=== PATIENT | female | born 1950 | race Caucasian/White ===

== ENCOUNTER 2016-09-04 14:54 | Inpatient (IN) | payer BC ==
[2016-09-04] MEDS ORDERED: ONDANSETRON HCL/PF 2 MG/ML VIAL ONE ×2 (15:03→16:11)
[2016-09-04] MEDS ORDERED: ONDANSETRON HCL/PF 2 MG/ML VIAL IV ONE ×2 (15:06→16:13)
[2016-09-04] MEDS ORDERED: NORMAL SALINE 1,000 ML IV ONE ×2 (15:18→17:24)
--- NOTE | 2016-09-04 15:24 | ERNOTE ---
Abdominal HPI - Narrative Date of Service: 09/04/16 - General Chief Complaint: Nausea/Vomiting Time Seen by Provider: 09/04/16 15:19 - Immun/Allergies/Home Medications Immunizatons: IMMUNIZATION HX History of Influenza Vaccine No Hx Pneumococcal Vaccination No Allergies/Adverse Reactions: Allergies amoxicillin trihydrate [From Augmentin] Allergy (Severe, Verified 04/10/13 15:12 ) Swelling of Tongue potassium clavulanate [From Augmentin] Allergy (Severe, Verified 04/10/13 15:12) Swelling of Tongue Penicillins Allergy (Unknown, Verified 09/04/16 14:59) Home Medications: HOME MEDICATIONS Aspirin/Calcium Carbonate/Mag [Aspirin Buffered 325 mg Tab] 325 mg PO 09/04/16 [ Last Taken 09/04/16 13:00] - History of Present Illness Narrative: Patient relates that she became acutely ill at 10am today. SHe started coughing and vomiting. She has prolonged dry heaves. She states she also was coughing. Fever here. She feels generalized malaise. No CP or SOB. No abdominal pain. She states some loose stool, no watery diarrhea noted. No blood in stool or vomit. Fever here. Has had some recent dysuria. Has not seen anyone else for this. Timing: constant Quality: moderate Activities at Onset: none Modifying Factors - (Improves): Present: other - none Modifying Factors - (Worsens): Present: other - none Associated Symptoms: Present: nausea, vomiting. Absent: headache, chest pain, diarrhea-gross blood, shortness of breath Prior Abdominal Problems: Present: none Prior Treatment: Absent: recently seen Review of Systems - Review of Systems Constitutional: Present: fever ENT: Absent: nose congestion Respiratory: Present: cough Cardiology: Absent: chest pain Gastrointestinal/Abdominal: Present: nausea, vomiting Genitourinary: Present: dysuria All Other Systems: All systems neg except as marked - Patient's Past Medical History Patient History - Medical: No pertinent hx - Social History Living Situations: home Smoking Status: Former smoker - Immunizations Hx Pneumococcal Vaccination: No History of Influenza Vaccine: No Physical Exam - Physical Exam General Appearance: Present: alert, other - lying on her side, noes not appear to be well Eye Exam: Normal inspection: bilateral, PERRL: bilateral Ears, Nose, Throat: Present: normal ENT inspection, dry mucous membranes Neck: Present: normal inspection Respiratory: Present: no respiratory distress, normal breath sounds, no accessory muscle use, lungs clear Cardiovascular/Chest: Present: tachycardia Gastrointestinal/Abdominal: Present: normal bowel sounds, nontender, nondistended, soft, no organomegaly Back Exam: Absent: CVA tenderness (R), CVA tenderness (L) Extremity Exam: Present: normal inspection Neurological Exam: Present: alert, normal mood/affect, no motor/sensory deficits , admissions director II-XII nml as tested Skin Exam: Absent: skin rash ED Progress - Results and Orders Patient's Lab Results:: I have reviewed the patient's lab results. - Vital Signs Patient's Vital Signs:: I have reviewed the patient's vital signs. Vital Signs: Vital Signs 09/04/16 14:54 Temperature 38.8 C H Pulse Rate 95 Respiratory 12 Rate Blood Pressure 144/110 O2 Sat by Pulse 98 Oximetry - X-Ray X-Ray #1 X-Ray: chest Interpretation: Interp. by me X-ray Comments: Radiology report reviewed - Progress/Reassessment Chief Complaint: Abdominal Pain Progress Note-Subjective: 09/04/16 19:24 Patient given IV ABx. She has on-going tachycardia and feels generally poorly despite 2 L NS. At this point I feel observation most appropriate. Pt agrees to this. D/W Hospitalist who will admit the patient obs. Departure - Departure Clinical Impression: Pneumonia, Fever, Vomiting, Dehydration Disposition: [facility] Condition: Stable
[2016-09-04 15:56] LABS: Hemoglobin 13.6 gm/dL (12.5-16.0); Mean Cell Volume 89.1 fl (78-100); Mean Corpuscular Hemoglobin 29.6 pg (27-31); Mean Corpuscular Hgb Conc 33.2 g/dl (32-36); Mean Platelet Volume 10.5 fl (6.0-9.5); Neutrophil # 11.3 K/mm3 (1.3-6.0); Neutrophil % 88.6 % (42-75.0); Platelet Count 198 K/mm3 (150-450); Red Cell Distribution Width 13.4 % (11.5-14.0); White Blood Count 12.8 K/mm3 (4.0-10.5)
[2016-09-04 16:09] LABS: Albumin * 3.8 gm/dl (3.4-5.0); Anion Gap 10.4 mmol/L (6.8-13.8); BUN/Creatinine Ratio 21.3 (9.0-21.6); Bilirubin, Total 0.6 mg/dL (0.0-1.1); Ca. Corrected For Albumin 8.5 mg/dL (8.4-10.2); Calcium * 8.7 mg/dL (7.9-10.9); Potassium 3.4 mmol/L (3.4-4.6); Total Protein 7.1 gm/dL (6.2-8.2)
[2016-09-04 17:37] LABS: Urine Bilirubin Negative (NEGATIVE); Urine Ketone Negative (NEGATIVE); Urine Nitrite Negative (NEGATIVE); Urine Protein Negative (NEGATIVE); Urine Urobilinogen Normal (NORMAL)
[2016-09-04] MEDS ORDERED: LEVOFLOXACIN/D5W 500 MG/100 ML BAG IV SCH (17:45)
[2016-09-04 17:52] LABS: Urine Appearance Clear; Urine Bacteria TRACE; Urine Blood 10 /ul (NEGATIVE); Urine Color Yellow; Urine RBC 0-5 /hpf (0-5); Urine WBC 0-5 /hpf (0-5)
[2016-09-04] MEDS ORDERED: LEVOFLOXACIN/D5W 750 MG/150 ML BAG IV SCH (19:00)
[2016-09-04] MEDS: NORMAL SALINE 1,000 ML IV PRN (20:20)
--- NOTE | 2016-09-04 20:28 | HP ---
<Yaneth Tate - Last Filed: 09/05/16 04:17> Chief Complaint - Chief Complaint Date of Service: 09/04/16 Time of Service: 20:26 Chief Complaint: "Nausea, dry heaving, headaches, chills, nasal congestion". Source of HPI- Pt; reliable, ER provider report. History of Present Illness: Mrs. Ivey is a 66-yr-old [facility] pt who has no pertinent PMH. She does not have a particular PCP. Pt presented to the ED with complaints of feeling unwell since 10.00 am today. She reports that she suddenly felt nauseated and begun dry heaving. Her symptoms progressed to coughing, vomiting, headaches and chills. The dry heaving got worse, and so she chose to come to the [facility] ER. She states that she has been around ill persons. She visited her mother who [facility] and was recently found to have Pneumonia. Pt's spouse has been having URI symptoms as well. She denies diarrhea, Abdominal pain, C.P & SOB. Also denies blood in vomitus. During evaluation at the ED, she was found to be febrile with a temp of 38.8 & WBC of 12,800 with a left shift. Lactic Acid was in NR. The CXR showed RT side opacities consistent with Pneumonia. ERP was going to treat and discharge pt from ED, but she persistently remained Tachycardic with HR in the upper 120s, despite treatment with IVF boluses. She will therefore be admitted under observation for IVF hydration and remote telemetry monitoring. - Patient's Past Medical History Patient History - Medical: No pertinent hx, Depression Patient History - Cardiac/Respiratory: Pneumonia Patient History - Cancer: No Hx of Cancer Patient History - Surgical Procedures: T & A Patient History - Other: None - Family History Mother Family History - Medical: Dementia Family History - Cardiac/Respiratory: No pertinent hx Family History - Cancer: No pertinent family hx Father Family History - Medical: Family History - Cardiac/Respiratory: No pertinent hx Family History - Cancer: Pancreatic - Social History Living Situations: home Smoking Status: Former smoker Have you smoked in the past 12 months: No Do you dip or chew tobacco: No Patient requests Smoking Cessation Consult: No Initiate information on Smoking Cessation: No Alcohol Use: none Drug Use: none - Immunizations Hx Pneumococcal Vaccination: No History of Influenza Vaccine: No Review Of Systems (GEN) - Review of Systems Generalized/Overall Review: Present: Weakness, Chills, Fever, Malaise EENTM: Present: Nose Congestion. Absent: Tearing, Double Vision Respiratory: Present: Cough. Absent: Shortness of Breath, Wheezing Cardiac: Absent: Chest Pain, Edema, Palpitations Abdominal: Present: Nausea, Vomiting. Absent: Hematemesis, Abdominal Pain, Diarrhea Genitourinary: Absent: Burning, Itching, Urgency, Frequency Musculoskeletal: Absent: Joint Pain, Back Pain, Joint Swelling, Muscle Pain, Neck Pain Neurological: Present: Headache, Depressed, Tremors. Absent: Anxiety Skin: Absent: Dryness, Lesions, Lumps, Bruising Endocrine: Present: Intolerance to Cold. Absent: Intolerance to Heat, Increased Hunger, Flushing, Increased Thirst Misc: All systems neg except as marked Immunizations: IMMUNIZATION HX History of Influenza Vaccine No Hx Pneumococcal Vaccination No Allergies/Adverse Reactions: Allergies Allergy/AdvReac Type Severity Reaction Status Date / Time amoxicillin trihydrate Allergy Severe Swelling Verified 04/10/13 15:12 [From Augmentin] of Tongue potassium clavulanate Allergy Severe Swelling Verified 04/10/13 15:12 [From Augmentin] of Tongue Penicillins Allergy Unknown Verified 09/04/16 14:59 Home Medications: HOME MEDICATIONS Aspirin/Calcium Carbonate/Mag [Aspirin Buffered 325 mg Tab] 325 mg PO DAILY [Last Taken 09/04/16 17:00] Exam - Exam Vital Signs: Vital Signs - Last Taken Temp 37.8 C H 09/04/16 20:01 Pulse 108 H 09/04/16 20:01 Resp 24 H 09/04/16 20:01 BP 140/70 09/04/16 20:01 Pulse Ox 96 09/04/16 20:01 Constitutional: Present: Alert, Oriented x3, Cooperative, Moderate distress ENT Exam: Present: normal ENT inspection, hearing grossly normal, nasal congestion Eye Exam: bilateral eye: normal inspection, PERRL Neck: Present: full range of motion, supple, normal inspection, trachea midline Back Exam: Present: no CVA tenderness Breasts: Present: Exam deferred Respiratory: Present: no accessory muscle use, rales - On the RT lung, No wheezing Cardiovascular/Chest: Present: no chest tenderness, no murmur, tachycardia Abdomen: Present: Normal bowel sounds, soft, nontender, nondistended /Rectal: Present: Exam deferred Extremity: Present: non-tender, normal inspection, no pedal edema Skin Exam: Present: warm/dry, no cyanosis Lymphatic: Present: no adenopathy Neurologic: Present: no motor/sensory deficits, alert, oriented x 3. Absent: dizzy/light-headedness Appearance: Present: appropriate appearance, appropriate insight Eye contact: Present: cooperative, good eye contact, normal speech Thoughts: Present: normal thought pattern, no apparent hallucination Diagnostic Studies: Laboratory Results WBC 12.8 K/mm3 (4.0-10.5) H 09/04/16 15:30 RBC 4.60 M/mm3 (4.2-5.4) 09/04/16 15:30 Hgb 13.6 gm/dL (12.5-16.0) 09/04/16 15:30 Hct 41.0 % (37.0-47.0) 09/04/16 15:30 MCV 89.1 fl (78-100) 09/04/16 15:30 MCH 29.6 pg (27-31) 09/04/16 15:30 MCHC 33.2 g/dl (32-36) 09/04/16 15:30 RDW 13.4 % (11.5-14.0) 09/04/16 15:30 Plt Count 198 K/mm3 (150-450) 09/04/16 15:30 MPV 10.5 fl (6.0-9.5) H 09/04/16 15:30 Immature Gran % (Auto) 0.40 % (0.001-0.429) 09/04/16 15:30 Immature Gran # (Auto) 0.05 K/mm3 (0.000-0.0310) H 09/04/16 15:30 Neutrophils % 88.6 % (42-75.0) H 09/04/16 15:30 Lymphocytes % 3.4 % (20-51) L 09/04/16 15:30 Monocytes % 7.0 % (0.0-9) 09/04/16 15:30 Eosinophils % 0.1 % (0.0-3.0) 09/04/16 15:30 Basophils % 0.5 % (0.0-1.0) 09/04/16 15:30 Nucleated RBC % 0.0 k/mm3 (0-1) 09/04/16 15:30 Neutrophils # 11.3 K/mm3 (1.3-6.0) H 09/04/16 15:30 Lymphocytes # 0.4 k/mm3 (1.5-3.5) L 09/04/16 15:30 Monocytes # 0.9 k/mm3 (0.0-1.0) 09/04/16 15:30 Eosinophils # 0.0 k/mm3 (0.0-0.7) 09/04/16 15:30 Absolute Basophils 0.1 k/mm3 (0.0-0.1) 09/04/16 15:30 Sodium 138 mmol/L (132-142) 09/04/16 15:30 Plasma Sodium 138 mmol/L (130-142) 09/04/16 15:30 Potassium 3.4 mmol/L (3.4-4.6) 09/04/16 15:30 Chloride 103 mmol/L (97-106) 09/04/16 15:30 Carbon Dioxide 28.0 mmol/L (24-32.6) 09/04/16 15:30 Anion Gap 10.4 mmol/L (6.8-13.8) 09/04/16 15:30 BUN 16 mg/dL (3-23) 09/04/16 15:30 Creatinine 0.75 mg/dL (0.4-1.4) 09/04/16 15:30 Est GFR (Non-Af Amer) 83 mL/min (60-130) 09/04/16 15:30 BUN/Creatinine Ratio 21.3 (9.0-21.6) 09/04/16 15:30 Random Glucose 126 mg/dL (70-110) H 09/04/16 15:30 Lactic Acid, Venous 1.3 mmol/L (0.4-2.0) 09/04/16 15:30 Calcium 8.7 mg/dL (7.9-10.9) 09/04/16 15:30 Calcium Adj for Albumin 8.5 mg/dL (8.4-10.2) 09/04/16 15:30 Total Bilirubin 0.6 mg/dL (0.0-1.1) 09/04/16 15:30 AST 18 U/L (0-48) 09/04/16 15:30 ALT 20 U/L (19-67) 09/04/16 15:30 Alkaline Phosphatase 81 U/L (50-170) 09/04/16 15:30 Total Protein 7.1 gm/dL (6.2-8.2) 09/04/16 15:30 Albumin 3.8 gm/dl (3.4-5.0) 09/04/16 15:30 Lipase 81 U/L (73-393) 09/04/16 15:30 Urine Color Yellow 09/04/16 17:29 Urine Appearance Clear 09/04/16 17:29 Urine pH 6.0 pH (5.0-7.0) 09/04/16 17:29 Ur Specific [place] 1.020 SP.GR. (1.005-1.010) 09/04/16 17: Urine Protein Negative mg/dL (NEGATIVE) 09/04/16 17:29 Urine Glucose (UA) Negative mg/dL (NEGATIVE) 09/04/16 17: Urine Ketones Negative mg/dL (NEGATIVE) 09/04/16 17:29 Urine Blood 10 /ul (NEGATIVE) H 09/04/16 17:29 Urine Nitrate Negative (NEGATIVE) 09/04/16 17:29 Urine Bilirubin Negative mg/dl (NEGATIVE) 09/04/16 17:29 Urine Urobilinogen Normal EU/dl (NORMAL) 09/04/16 17:29 Ur Leukocyte Esterase 25 /ul (NEGATIVE) H 09/04/16 17:29 Urine RBC 0-5 /hpf (0-5) 09/04/16 17:29 Urine WBC 0-5 /hpf (0-5) 09/04/16 17:29 Ur Epithelial Cells 0-5 /hpf (0-5) 09/04/16 17:29 Urine Bacteria Trace (NONE) 09/04/16 17:29 Urine Culture Comments Culture to follow 09/04/16 17:29 Influenza Type A Ag Negative (NEGATIVE) 09/04/16 15:06 Influenza Type B Ag Negative (NEGATIVE) 09/04/16 15:06 Assessment/Plan - Assessment/Plan (1) Pneumonia Assessment: Noted to have clinical features associated with CAP-Fevers, chills, Cough, Leukocytosis on CBC, Crackles on RT base and CXR indicating opacities in the RT Lung. She was negative for influenza. Blood and sputum cultures are pending. Urinary antigen testing for Strep Pneumo and legionella are pending. She received treatment with IV levaquin in ER. However, since she is otherwise a healthy pt, ( no comoribidities such as DM, Lung, renal disease), first line outpatient treatment with a Macrolide e.g Azthryromycin 500mg x 1 then 250mg daily x 4 days, or Clarythromycin 500 mg PO bid x 7 days, would be considered sufficient. Continue supportive cares with IVF hydration, APAP for fevers & headaches, & Antiemetics. Monitor CBC in am Problem: Acute QualifierTitle: Laterality: right Lung location: middle lobe of lung <Sam Goldberg - Last Filed: 09/05/16 10:58> Immunizations: IMMUNIZATION HX History of Influenza Vaccine No Hx Pneumococcal Vaccination No Exam - Exam Vital Signs: Vital Signs - Last Taken Temp 36.6 C 09/05/16 10:14 Pulse 82 09/05/16 10:14 Resp 20 09/05/16 10:14 BP 120/64 09/05/16 10:14 Pulse Ox 94 09/05/16 10:14 Diagnostic Studies: Abnormal Lab Results 09/05/16 Range/Units 04:40 WBC 13.2 H (4.0-10.5) K/mm3 RBC 3.94 L (4.2-5.4) M/mm3 Hgb 11.5 L (12.5-16.0) gm/dL Hct 35.2 L (37.0-47.0) % MPV 10.8 H (6.0-9.5) fl Immature Gran % (Auto) 0.60 H (0.001-0.429) % Immature Gran # (Auto) 0.08 H (0.000-0.0310) K/mm3 Neutrophils % 82.4 H (42-75.0) % Lymphocytes % 6.1 L (20-51) % Monocytes % 10.7 H (0.0-9) % Neutrophils # 10.9 H (1.3-6.0) K/mm3 Lymphocytes # 0.8 L (1.5-3.5) k/mm3 Monocytes # 1.4 H (0.0-1.0) k/mm3 Laboratory Results WBC 13.2 K/mm3 (4.0-10.5) H 09/05/16 04:40 RBC 3.94 M/mm3 (4.2-5.4) L 09/05/16 04:40 Hgb 11.5 gm/dL (12.5-16.0) L 09/05/16 04:40 Hct 35.2 % (37.0-47.0) L 09/05/16 04:40 MCV 89.3 fl (78-100) 09/05/16 04:40 MCH 29.2 pg (27-31) 09/05/16 04:40 MCHC 32.7 g/dl (32-36) 09/05/16 04:40 RDW 13.6 % (11.5-14.0) 09/05/16 04:40 Plt Count 167 K/mm3 (150-450) 09/05/16 04:40 MPV 10.8 fl (6.0-9.5) H 09/05/16 04:40 Immature Gran % (Auto) 0.60 % (0.001-0.429) H 09/05/16 04:40 Immature Gran # (Auto) 0.08 K/mm3 (0.000-0.0310) H 09/05/16 04:40 Neutrophils % 82.4 % (42-75.0) H 09/05/16 04:40 Lymphocytes % 6.1 % (20-51) L 09/05/16 04:40 Monocytes % 10.7 % (0.0-9) H 09/05/16 04:40 Eosinophils % 0.0 % (0.0-3.0) 09/05/16 04:40 Basophils % 0.2 % (0.0-1.0) 09/05/16 04:40 Nucleated RBC % 0.0 k/mm3 (0-1) 09/05/16 04:40 Neutrophils # 10.9 K/mm3 (1.3-6.0) H 09/05/16 04:40 Lymphocytes # 0.8 k/mm3 (1.5-3.5) L 09/05/16 04:40 Monocytes # 1.4 k/mm3 (0.0-1.0) H 09/05/16 04:40 Eosinophils # 0.0 k/mm3 (0.0-0.7) 09/05/16 04:40 Absolute Basophils 0.0 k/mm3 (0.0-0.1) 09/05/16 04:40 Sodium 138 mmol/L (132-142) 09/04/16 15:30 Plasma Sodium 138 mmol/L (130-142) 09/04/16 15:30 Potassium 3.4 mmol/L (3.4-4.6) 09/04/16 15:30 Chloride 103 mmol/L (97-106) 09/04/16 15:30 Carbon Dioxide 28.0 mmol/L (24-32.6) 09/04/16 15:30 Anion Gap 10.4 mmol/L (6.8-13.8) 09/04/16 15:30 BUN 16 mg/dL (3-23) 09/04/16 15:30 Creatinine 0.75 mg/dL (0.4-1.4) 09/04/16 15:30 Est GFR (Non-Af Amer) 83 mL/min (60-130) 09/04/16 15:30 BUN/Creatinine Ratio 21.3 (9.0-21.6) 09/04/16 15:30 Random Glucose 126 mg/dL (70-110) H 09/04/16 15:30 Lactic Acid, Venous 1.3 mmol/L (0.4-2.0) 09/04/16 15:30 Calcium 8.7 mg/dL (7.9-10.9) 09/04/16 15:30 Calcium Adj for Albumin 8.5 mg/dL (8.4-10.2) 09/04/16 15:30 Total Bilirubin 0.6 mg/dL (0.0-1.1) 09/04/16 15:30 AST 18 U/L (0-48) 09/04/16 15:30 ALT 20 U/L (19-67) 09/04/16 15:30 Alkaline Phosphatase 81 U/L (50-170) 09/04/16 15:30 Total Protein 7.1 gm/dL (6.2-8.2) 09/04/16 15:30 Albumin 3.8 gm/dl (3.4-5.0) 09/04/16 15:30 Lipase 81 U/L (73-393) 09/04/16 15:30 Urine Color Yellow 09/04/16 17:29 Urine Appearance Clear 09/04/16 17: Urine pH 6.0 pH (5.0-7.0) 09/04/16 17:29 Ur Specific [place] 1.020 SP.GR. (1.005-1.010) 09/04/16 17:29 Urine Protein Negative mg/dL (NEGATIVE) 09/04/16 17:29 Urine Glucose (UA) Negative mg/dL (NEGATIVE) 09/04/16 17: Urine Ketones Negative mg/dL (NEGATIVE) 09/04/16 17:29 Urine Blood 10 /ul (NEGATIVE) H 09/04/16 17:29 Urine Nitrate Negative (NEGATIVE) 09/04/16 17: Urine Bilirubin Negative mg/dl (NEGATIVE) 09/04/16 17: Urine Urobilinogen Normal EU/dl (NORMAL) 09/04/16 17:29 Ur Leukocyte Esterase 25 /ul (NEGATIVE) H 09/04/16 17:29 Urine RBC 0-5 /hpf (0-5) 09/04/16 17:29 Urine WBC 0-5 /hpf (0-5) 09/04/16 17:29 Ur Epithelial Cells 0-5 /hpf (0-5) 09/04/16 17:29 Urine Bacteria Trace (NONE) 09/04/16 17:29 Urine Culture Comments Culture to follow 09/04/16 17:29 Influenza Type A Ag Negative (NEGATIVE) 09/04/16 15:06 Influenza Type B Ag Negative (NEGATIVE) 09/04/16 15:06 Group A Strep Rapid Negative (NEGATIVE) 09/04/16 22:37 Assessment/Plan - Narrative Narrative: Chart reviewed, patient examined. This patient's mother actually had a vomiting /diarrhea illness and her influenza test was negative. The patient herself does in fact have a cough, and had shaking chills off and on yesterday. I directly supervised all of [facility]'s care for this patient. The plan is supportive, plus IV antibiotics while waiting for cultures.
[2016-09-04] MEDS: ONDANSETRON HCL/PF 2 MG/ML VIAL IV PRN (20:29)
[2016-09-04] MEDS: ACETAMINOPHEN 325 MG TABLET PO PRN (20:39)
[2016-09-05] MEDS: ONDANSETRON HCL/PF 2 MG/ML VIAL IV PRN ×3 (00:36→08:58)
[2016-09-05] MEDS: ACETAMINOPHEN 325 MG TABLET PO PRN ×3 (04:18→22:24)
[2016-09-05] MEDS: NORMAL SALINE 1,000 ML IV PRN (04:46)
[2016-09-05 05:41] LABS: Hematocrit 35.2 % (37.0-47.0); Hemoglobin 11.5 gm/dL (12.5-16.0); Mean Cell Volume 89.3 fl (78-100); Mean Corpuscular Hemoglobin 29.2 pg (27-31); Mean Corpuscular Hgb Conc 32.7 g/dl (32-36); Mean Platelet Volume 10.8 fl (6.0-9.5); Neutrophil # 10.9 K/mm3 (1.3-6.0); Neutrophil % 82.4 % (42-75.0); Platelet Count 167 K/mm3 (150-450); Red Blood Count 3.94 M/mm3 (4.2-5.4); Red Cell Distribution Width 13.6 % (11.5-14.0); White Blood Count 13.2 K/mm3 (4.0-10.5)
[2016-09-05] MEDS: AZITHROMYCIN 500 MG in DEXTROSE 5 % IN WATER 250 ML IV SCH ×2 (08:24)
[2016-09-05] MEDS ORDERED: ASPIRIN PO SCH (09:00)
[2016-09-05] MEDS ORDERED: CALCIUM CARBONATE PO SCH (09:00)
[2016-09-05] MEDS ORDERED: MAG PO SCH (09:00)
[2016-09-05] MEDS: ONDANSETRON HCL/PF 2 MG/ML VIAL IV SCH ×4 (10:15→22:26)
--- NOTE | 2016-09-05 11:07 | PN ---
Subjective - Date and Time Seen Date: 09/05/16 Time: 06:40 Subjective Narrative: Still nauseated, but no vomiting today. One episode of diarrhea yesterday, none today. Still feels weak and bad all over. Slight cough. CXR suggests pneumonia. Urine is growing gram negative bacilli. Objective - Review of Systems Generalized/Overall Review: Reports: Weakness, Malaise, Fatigue EENTM: Reports: No Symptoms Reported Respiratory: Reports: Cough Cardiac: Reports: No Symptoms Reported Abdominal: Reports: Nausea Genitourinary Symptoms: Reports: No Symptoms Reported Musculoskeletal Complaints: Reports: Muscle Pain Neurological: Reports: No Symptoms Reported Skin: Reports: No Symptoms Reported Endocrine: Reports: No Symptoms Reported Misc: All systems neg except as marked - Vitals Vitals: Last Vital Signs Selected Entries 09/05/16 09/05/16 00:20 02:01 Temperature 36.8 C Temperature Oral Source Pulse Rate 107 H 97 Respiratory 20 Rate Blood Pressure 116/64 Blood Pressure Supine Position O2 Sat by Pulse 95 Oximetry Oxygen Delivery Room Air Method - Abnormal Lab Findings Abnormal Lab Findings: Abnormal Lab Results 09/05/16 Range/Units 04:40 WBC 13.2 H (4.0-10.5) K/mm3 RBC 3.94 L (4.2-5.4) M/mm3 Hgb 11.5 L (12.5-16.0) gm/dL Hct 35.2 L (37.0-47.0) % MPV 10.8 H (6.0-9.5) fl Immature Gran % (Auto) 0.60 H (0.001-0.429) % Immature Gran # (Auto) 0.08 H (0.000-0.0310) K/mm3 Neutrophils % 82.4 H (42-75.0) % Lymphocytes % 6.1 L (20-51) % Monocytes % 10.7 H (0.0-9) % Neutrophils # 10.9 H (1.3-6.0) K/mm3 Lymphocytes # 0.8 L (1.5-3.5) k/mm3 Monocytes # 1.4 H (0.0-1.0) k/mm3 - Exam Constitutional: Present: Alert, Oriented x3, Cooperative, Well developed, Well nourished, No distress ENT Exam: Present: normal ENT inspection, hearing grossly normal, pharynx normal , TMs normal Neck: Present: normal inspection Respiratory: Present: lungs clear, no respiratory distress Cardiovascular/Chest: Present: regular rate, rhythm, no murmur Abdomen: Present: Normal bowel sounds, soft, nondistended, no rebound tenderness , no hepatospenomegaly, no masses, tender - diffusely mildly tender Extremity: Present: normal inspection, no pedal edema Skin Exam: Present: normal color, warm/dry, no cyanosis Lymphatic: Present: no adenopathy Neurologic: Present: alert, oriented x 3 Appearance: Present: appropriate appearance, appropriate insight, neat, no memory impairment Eye contact: Present: cooperative, good eye contact, normal speech Thoughts: Present: normal thought pattern Assessment/Plan Plan Narrative: IV fluids and electrolytes. Symptomatic treatment. Await final culture reports. IV antibiotics. Follow labs. Clear liquid diet. - Problems/Diagnosis (1) Diarrhea Problem: Acute Qualifiers: Diarrhea type: presumed infectious Qualified Code(s): A09 - Infectious gastroenteritis and colitis, unspecified (2) UTI (urinary tract infection) Problem: Acute Qualifiers: Urinary tract infection type: acute pyelonephritis Qualified Code(s): N10 - Acute pyelonephritis (3) Dehydration Problem: Acute (4) Fever Problem: Acute Qualifiers: Fever type: other Qualified Code(s): R50.81 - Fever presenting with conditions classified elsewhere (5) Pneumonia Problem: Acute Qualifiers: Pneumonia type: due to unspecified organism Laterality: right Lung location: middle lobe of lung Qualified Code(s): J18.1 - Lobar pneumonia, unspecified organism (6) Vomiting Problem: Acute Qualifiers: Vomiting type: unspecified Vomiting Intractability: non-intractable Nausea presence: with nausea Qualified Code(s): R11.2 - Nausea with vomiting, unspecified
[2016-09-05] MEDS: POTASSIUM CHLORIDE 20 MEQ in NORMAL SALINE 1,000 ML IV SCH ×2 (11:36→20:57)
[2016-09-05] MEDS: PROMETHAZINE HCL 12.5 MG in DEXTROSE 5 % IN WATER 50 ML IV PRN ×4 (12:54→21:27)
[2016-09-06] MEDS: ONDANSETRON HCL/PF 2 MG/ML VIAL IV SCH ×2 (02:01→05:35)
[2016-09-06] MEDS: ACETAMINOPHEN 325 MG TABLET PO PRN ×3 (04:34→18:49)
[2016-09-06] MEDS: PROMETHAZINE HCL 12.5 MG in DEXTROSE 5 % IN WATER 50 ML IV PRN ×2 (04:35)
[2016-09-06] MEDS: POTASSIUM CHLORIDE 20 MEQ in NORMAL SALINE 1,000 ML IV SCH ×2 (05:35→17:16)
[2016-09-06 06:08] LABS: Hematocrit 32.6 % (37.0-47.0); Hemoglobin 10.8 gm/dL (12.5-16.0); Mean Cell Volume 89.3 fl (78-100); Mean Corpuscular Hemoglobin 29.6 pg (27-31); Mean Corpuscular Hgb Conc 33.1 g/dl (32-36); Platelet Count 136 K/mm3 (150-450); Red Blood Count 3.65 M/mm3 (4.2-5.4); Red Cell Distribution Width 13.7 % (11.5-14.0); White Blood Count 8.8 K/mm3 (4.0-10.5)
[2016-09-06 06:12] LABS: Total Cells Counted 100
[2016-09-06 06:20] LABS: Anion Gap 8.4 mmol/L (6.8-13.8); BUN/Creatinine Ratio 10.5 (9.0-21.6); Calcium * 7.9 mg/dL (7.9-10.9); Carbon Dioxide 26.7 mmol/L (24-32.6); Estimated Creat Clear 61.9; Potassium 3.1 mmol/L (3.4-4.6)
[2016-09-06 06:37] LABS: Band 7 % (0-2.0); Lymphocyte 11 % (20-51); Monocyte 5 % (0-9); Neutrophil 77 % (42-75); Neutrophil # 6.8 K/mm3 (1.3-6.0); Platelet Estimate Decreased (NORMAL); RBC Morphology Normal (NORMAL)
[2016-09-06] MEDS: AZITHROMYCIN 500 MG in DEXTROSE 5 % IN WATER 250 ML IV SCH ×2 (07:00)
[2016-09-06] MEDS: diphenhydrAMINE HCL 50 MG/ML VIAL IV PRN ×3 (08:04→22:27)
[2016-09-06] MEDS: METOCLOPRAMIDE HCL 5 MG/ML VIAL IV PRN ×3 (08:04→22:28)
[2016-09-06] MEDS: KETOROLAC TROMETHAMINE 30 MG/ML VIAL IV PRN ×3 (08:04→22:27)
[2016-09-06] MEDS: ENOXAPARIN SODIUM 40 MG/0.4 ML SYRG SC SCH (09:50)
[2016-09-06] MEDS: PROMETHAZINE HCL 12.5 MG in DEXTROSE 5 % IN WATER 50 ML IV SCH ×8 (09:58→19:00)
[2016-09-07] MEDS: POTASSIUM CHLORIDE 20 MEQ in NORMAL SALINE 1,000 ML IV SCH (00:47)
[2016-09-07] MEDS ORDERED: TOPIRAMATE 50 MG TABLET PO ONE (00:57)
[2016-09-07] MEDS: PROMETHAZINE HCL 12.5 MG in DEXTROSE 5 % IN WATER 50 ML IV SCH ×12 (01:10→19:29)
[2016-09-07] MEDS ORDERED: DILTIAZEM HCL 5 MG/ML VIAL IV ONE ×2 (01:34→02:00)
[2016-09-07] MEDS ORDERED: DILTIAZEM HCL 120 MG CAP.SR.24H PO ONE (02:22)
[2016-09-07] MEDS: LEVALBUTEROL HCL 0.63 MG/3 ML AMPUL IH SCH ×4 (02:44→18:17)
[2016-09-07] MEDS: ACETAMINOPHEN 325 MG TABLET PO PRN (03:13)
[2016-09-07] MEDS ORDERED: DILTIAZEM HCL 125 MG in DEXTROSE 5 % IN WATER 100 ML IV PRN ×2 (03:36)
[2016-09-07 05:06] LABS: Hemoglobin 11.6 gm/dL (12.5-16.0); Mean Cell Volume 88.8 fl (78-100); Mean Corpuscular Hemoglobin 29.4 pg (27-31); Mean Corpuscular Hgb Conc 33.1 g/dl (32-36); Mean Platelet Volume 11.2 fl (6.0-9.5); Neutrophil # 9.1 K/mm3 (1.3-6.0); Neutrophil % 79.4 % (42-75.0); Platelet Count 147 K/mm3 (150-450); Red Blood Count 3.94 M/mm3 (4.2-5.4); Red Cell Distribution Width 13.8 % (11.5-14.0); White Blood Count 11.4 K/mm3 (4.0-10.5)
[2016-09-07 05:30] LABS: Albumin * 2.5 gm/dl (3.4-5.0); BUN/Creatinine Ratio 9.1 (9.0-21.6); Bilirubin, Total 0.5 mg/dL (0.0-1.1); Ca. Corrected For Albumin 8.6 mg/dL (8.4-10.2); Calcium * 7.7 mg/dL (7.9-10.9); Carbon Dioxide 23.9 mmol/L (24-32.6); Potassium 2.9 mmol/L (3.4-4.6); TSH * 0.465 uIU/mL (0.358-3.74); Total Protein 5.6 gm/dL (6.2-8.2)
[2016-09-07] MEDS ORDERED: FUROSEMIDE 10 MG/ML VIAL IV STA (06:25)
[2016-09-07 06:49] LABS: Troponin I 0.099 ng/ml (0.00-0.10)
[2016-09-07] MEDS: AZITHROMYCIN 500 MG in DEXTROSE 5 % IN WATER 250 ML IV SCH ×2 (07:01)
[2016-09-07] MEDS: KETOROLAC TROMETHAMINE 30 MG/ML VIAL IV PRN ×3 (07:01→21:04)
[2016-09-07] MEDS: diphenhydrAMINE HCL 50 MG/ML VIAL IV PRN ×3 (07:01→21:04)
[2016-09-07] MEDS: METOCLOPRAMIDE HCL 5 MG/ML VIAL IV PRN ×3 (07:01→21:03)
[2016-09-07] MEDS: ENOXAPARIN SODIUM 40 MG/0.4 ML SYRG SC SCH (08:10)
[2016-09-07] MEDS: POTASSIUM CHLORIDE 20 MEQ TABLET.SA PO SCH ×4 (08:11→20:45)
[2016-09-07] MEDS ORDERED: DIGOXIN 0.25 MG/ML AMPUL IV ONE ×2 (08:38→15:00)
[2016-09-07] MEDS ORDERED: AMIODARONE HCL 200 MG TABLET PO SCH (09:00)
--- NOTE | 2016-09-07 17:46 | PN ---
Subjective - Date and Time Seen Date: 09/07/16 Time: 07:10 Subjective Narrative: Still nauseated, and still with a headache. Last night went into a fib. Previous history of palpitations, never formaly evaluated. Still feels weak and bad all over. Slight cough. CXR suggests pneumonia. Urine and one blood culture are growing Klebsiella There is a past medical history of migraine. At the present time she appears to be fluid overloaded with early pulmonary edema. Objective - Review of Systems Generalized/Overall Review: Reports: Weakness, Malaise, Fatigue EENTM: Reports: No Symptoms Reported Respiratory: Reports: Cough Cardiac: Reports: No Symptoms Reported Abdominal: Reports: Nausea Genitourinary Symptoms: Reports: No Symptoms Reported Musculoskeletal Complaints: Reports: No Symptoms Reported Neurological: Reports: Headache, Weakness Skin: Reports: No Symptoms Reported Endocrine: Reports: No Symptoms Reported Misc: All systems neg except as marked - Vitals Vitals: Last Vital Signs Selected Entries 09/07/16 09/07/16 09/07/16 04:20 06:01 06:50 Temperature 37.0 C Temperature Oral Source Pulse Rate 140 H 118 H 132 H Pulse Rhythm Irregular Irregular Respiratory 28 H 26 H Rate Blood Pressure 126/83 111/62 95/53 Blood Pressure Supine Supine Position O2 Sat by Pulse 93 93 Oximetry Oxygen Delivery Nasal Cannula Nasal Cannula Method Oxygen Flow 2 2 Rate - Abnormal Lab Findings Abnormal Lab Findings: Abnormal Lab Results 09/07/16 09/07/16 09/07/16 Range/Units 04:50 04:50 04:50 WBC 11.4 H D (4.0-10.5) K/mm3 RBC 3.94 L (4.2-5.4) M/mm3 Hgb 11.6 L (12.5-16.0) gm/dL Hct 35.0 L (37.0-47.0) % Plt Count 147 L (150-450) K/mm3 MPV 11.2 H (6.0-9.5) fl Immature Gran % (Auto) 0.90 H (0.001-0.429) % Immature Gran # (Auto) 0.10 H (0.000-0.0310) K/mm3 Neutrophils % 79.4 H (42-75.0) % Lymphocytes % 7.3 L (20-51) % Monocytes % 12.1 H (0.0-9) % Neutrophils # 9.1 H (1.3-6.0) K/mm3 Lymphocytes # 0.8 L (1.5-3.5) k/mm3 Monocytes # 1.4 H (0.0-1.0) k/mm3 Potassium 2.9 L (3.4-4.6) mmol/L Chloride 107 H (97-106) mmol/L Carbon Dioxide 23.9 L (24-32.6) mmol/L Random Glucose 121 H (70-110) mg/dL Calcium 7.7 L (7.9-10.9) mg/dL B-Natriuretic Peptide 3730 H (5-205) pg/mL Total Protein 5.6 L (6.2-8.2) gm/dL Albumin 2.5 L (3.4-5.0) gm/dl - Exam Constitutional: Present: Oriented x3, Cooperative, Well developed, Well nourished, Mild distress, Somnolent ENT Exam: Present: normal ENT inspection, hearing grossly normal, pharynx normal Neck: Present: supple Respiratory: Present: rales, rhonchi, expiration (prolonged) Cardiovascular/Chest: Present: no murmur, irregularly irregular Abdomen: Present: Normal bowel sounds, soft, nontender, nondistended, no rebound tenderness, no hepatospenomegaly, no masses Extremity: Present: normal range of motion, pedal edema Skin Exam: Present: normal color, warm/dry, no cyanosis Neurologic: Present: oriented x 3 Appearance: Present: appropriate appearance, neat Eye contact: Present: cooperative Assessment/Plan Plan Narrative: Stop fluids. IV lasix. Oral amiodarone. Follow labs. maintain is SCU for now. Monitor. IV antibiotics. Treat migraine. - Problems/Diagnosis (1) Diarrhea Problem: Acute Qualifiers: Diarrhea type: presumed infectious Qualified Code(s): A09 - Infectious gastroenteritis and colitis, unspecified (2) UTI (urinary tract infection) Problem: Acute Qualifiers: Urinary tract infection type: acute pyelonephritis Qualified Code(s): N10 - Acute pyelonephritis (3) Dehydration Problem: Acute (4) Fever Problem: Acute Qualifiers: Fever type: other Qualified Code(s): R50.81 - Fever presenting with conditions classified elsewhere (5) Pneumonia Problem: Acute Qualifiers: Pneumonia type: due to unspecified organism Laterality: right Lung location: middle lobe of lung Qualified Code(s): J18.1 - Lobar pneumonia, unspecified organism (6) Vomiting Problem: Acute Qualifiers: Vomiting type: unspecified Vomiting Intractability: non-intractable Nausea presence: with nausea Qualified Code(s): R11.2 - Nausea with vomiting, unspecified (7) UTI due to Klebsiella species Problem: Acute (8) Klebsiella sepsis Problem: Acute (9) Klebsiella pneumonia Problem: Acute (10) Atrial fibrillation with RVR Problem: Acute (11) Pulmonary edema Problem: Acute (12) Fluid overload Problem: Acute (13) Migraine Problem: Acute Qualifiers: Migraine type: without aura Status migrainosus presence: without status migrainosus Intractability: not intractable Qualified Code(s): G43.009 - Migraine without aura, not intractable, without status migrainosus
[2016-09-08] MEDS: PROMETHAZINE HCL 12.5 MG in DEXTROSE 5 % IN WATER 50 ML IV SCH ×10 (00:23→15:51)
[2016-09-08] MEDS: LEVALBUTEROL HCL 0.63 MG/3 ML AMPUL IH SCH ×5 (01:34→18:03)
[2016-09-08] MEDS: AZITHROMYCIN 500 MG in DEXTROSE 5 % IN WATER 250 ML IV SCH ×2 (06:58)
[2016-09-08 06:59] LABS: Hematocrit 34.2 % (37.0-47.0); Hemoglobin 11.6 gm/dL (12.5-16.0); Mean Cell Volume 87.7 fl (78-100); Mean Corpuscular Hemoglobin 29.7 pg (27-31); Mean Corpuscular Hgb Conc 33.9 g/dl (32-36); Mean Platelet Volume 10.5 fl (6.0-9.5); Neutrophil # 7.1 K/mm3 (1.3-6.0); Neutrophil % 69.9 % (42-75.0); Platelet Count 182 K/mm3 (150-450); Red Cell Distribution Width 14.1 % (11.5-14.0); White Blood Count 10.2 K/mm3 (4.0-10.5)
[2016-09-08] MEDS: ENOXAPARIN SODIUM 40 MG/0.4 ML SYRG SC SCH ×2 (07:02→08:21)
[2016-09-08 07:15] LABS: Albumin * 2.4 gm/dl (3.4-5.0); Anion Gap 11.2 mmol/L (6.8-13.8); BUN/Creatinine Ratio 10.4 (9.0-21.6); Bilirubin, Total 0.6 mg/dL (0.0-1.1); Carbon Dioxide 23.6 mmol/L (24-32.6); Potassium 3.8 mmol/L (3.4-4.6); Total Protein 5.9 gm/dL (6.2-8.2)
[2016-09-08] MEDS ORDERED: FUROSEMIDE 10 MG/ML VIAL IV ONE ×2 (07:39→07:41)
[2016-09-08] MEDS ORDERED: diphenhydrAMINE HCL 50 MG/ML VIAL IV PRN (07:41)
[2016-09-08] MEDS ORDERED: KETOROLAC TROMETHAMINE 30 MG/ML VIAL IV PRN (07:41)
[2016-09-08] MEDS ORDERED: ACETAMINOPHEN 325 MG TABLET PO PRN (07:41)
[2016-09-08] MEDS ORDERED: METOCLOPRAMIDE HCL 5 MG/ML VIAL IV PRN (07:41)
[2016-09-08] MEDS: POTASSIUM CHLORIDE 20 MEQ TABLET.SA PO SCH ×4 (09:10→20:43)
[2016-09-08] MEDS ORDERED: DILTIAZEM HCL 5 MG/ML VIAL IV ONE (09:41)
[2016-09-08] MEDS ORDERED: DILTIAZEM HCL 125 MG in DEXTROSE 5 % IN WATER 100 ML IV PRN ×2 (09:42)
[2016-09-08] MEDS: AMIODARONE HCL 200 MG TABLET PO SCH ×2 (10:19→20:43)
--- NOTE | 2016-09-08 12:25 | ECHO ---
This report is available in the EMR
--- NOTE | 2016-09-08 18:15 | PN ---
Subjective - Date and Time Seen Date: 09/08/16 Time: 06:50 Subjective Narrative: Still nauseated, and still with a headache. Previous history of palpitations, never formaly evaluated. Still feels weak and bad all over. Slight cough. CXR showed fluid overload. Urine and one blood culture are growing Klebsiella There is a past medical history of migraine. Fluid overload better than yesterday. Objective - Review of Systems Generalized/Overall Review: Reports: Malaise, Fatigue EENTM: Reports: No Symptoms Reported Respiratory: Reports: Shortness of Breath Cardiac: Reports: Palpitations Abdominal: Reports: Nausea Genitourinary Symptoms: Reports: No Symptoms Reported Musculoskeletal Complaints: Reports: No Symptoms Reported Neurological: Reports: Headache Skin: Reports: No Symptoms Reported Endocrine: Reports: No Symptoms Reported Misc: All systems neg except as marked - Vitals Vitals: Last Vital Signs Selected Entries 09/08/16 04:30 Temperature 37.5 C Temperature Temporal Artery Source Scan Pulse Rate 95 Respiratory 20 Rate Blood Pressure 137/68 O2 Sat by Pulse 98 Oximetry Oxygen Delivery Nasal Cannula Method Oxygen Flow 1 Rate - Abnormal Lab Findings Abnormal Lab Findings: Abnormal Lab Results 09/08/16 09/08/16 Range/Units 06:49 06:49 RBC 3.90 L (4.2-5.4) M/mm3 Hgb 11.6 L (12.5-16.0) gm/dL Hct 34.2 L (37.0-47.0) % RDW 14.1 H (11.5-14.0) % MPV 10.5 H (6.0-9.5) fl Immature Gran % (Auto) 1.10 H (0.001-0.429) % Immature Gran # (Auto) 0.11 H (0.000-0.0310) K/mm3 Lymphocytes % 14.2 L (20-51) % Monocytes % 14.3 H (0.0-9) % Neutrophils # 7.1 H (1.3-6.0) K/mm3 Lymphocytes # 1.4 L (1.5-3.5) k/mm3 Monocytes # 1.5 H (0.0-1.0) k/mm3 Carbon Dioxide 23.6 L (24-32.6) mmol/L Total Protein 5.9 L (6.2-8.2) gm/dL Albumin 2.4 L (3.4-5.0) gm/dl - Exam Constitutional: Present: Alert, Oriented x3, Cooperative, Well developed, Well nourished, No distress ENT Exam: Present: normal ENT inspection, hearing grossly normal Neck: Present: normal inspection Respiratory: Present: rales Cardiovascular/Chest: Present: regular rate, rhythm, no murmur Abdomen: Present: Normal bowel sounds, soft, nontender, nondistended, no rebound tenderness, no hepatospenomegaly, no masses Extremity: Present: normal range of motion, non-tender, normal inspection Skin Exam: Present: normal color, warm/dry, no cyanosis Neurologic: Present: alert, oriented x 3 Appearance: Present: appropriate appearance, appropriate insight, neat, no memory impairment Eye contact: Present: cooperative, good eye contact, normal speech Thoughts: Present: normal thought pattern Assessment/Plan Plan Narrative: One more dose IV Lasix. Med surg transfer. Labs as needed. Cardiology consult. Echo shows slightly increased RVSP. IV antibiotics. - Problems/Diagnosis (1) Diarrhea Problem: Acute Qualifiers: Diarrhea type: presumed infectious Qualified Code(s): A09 - Infectious gastroenteritis and colitis, unspecified (2) UTI (urinary tract infection) Problem: Acute Qualifiers: Urinary tract infection type: acute pyelonephritis Qualified Code(s): N10 - Acute pyelonephritis (3) Dehydration Problem: Acute (4) Fever Problem: Acute Qualifiers: Fever type: other Qualified Code(s): R50.81 - Fever presenting with conditions classified elsewhere (5) Pneumonia Problem: Acute Qualifiers: Pneumonia type: due to unspecified organism Laterality: right Lung location: middle lobe of lung Qualified Code(s): J18.1 - Lobar pneumonia, unspecified organism (6) Vomiting Problem: Acute Qualifiers: Vomiting type: unspecified Vomiting Intractability: non-intractable Nausea presence: with nausea Qualified Code(s): R11.2 - Nausea with vomiting, unspecified (7) UTI due to Klebsiella species Problem: Acute (8) Klebsiella sepsis Problem: Acute (9) Klebsiella pneumonia Problem: Acute (10) Atrial fibrillation with RVR Problem: Acute (11) Pulmonary edema Problem: Acute (12) Fluid overload Problem: Acute (13) Migraine Problem: Acute Qualifiers: Migraine type: without aura Status migrainosus presence: without status migrainosus Intractability: not intractable Qualified Code(s): G43.009 - Migraine without aura, not intractable, without status migrainosus
[2016-09-08] MEDS: DOXYCYCLINE HYCLATE 100 MG in DEXTROSE 5 % IN WATER 100 ML IV SCH ×2 (18:51)
[2016-09-08] MEDS ORDERED: PROMETHAZINE HCL 12.5 MG in DEXTROSE 5 % IN WATER 50 ML IV PRN ×2 (19:33)
[2016-09-09] MEDS: LEVALBUTEROL HCL 0.63 MG/3 ML AMPUL IH SCH ×4 (01:17→18:16)
[2016-09-09 05:49] LABS: Hemoglobin 12.4 gm/dL (12.5-16.0); Mean Cell Volume 85.9 fl (78-100); Mean Corpuscular Hemoglobin 29.6 pg (27-31); Mean Corpuscular Hgb Conc 34.4 g/dl (32-36); Mean Platelet Volume 10.2 fl (6.0-9.5); Neutrophil # 6.5 K/mm3 (1.3-6.0); Neutrophil % 64.2 % (42-75.0); Platelet Count 232 K/mm3 (150-450); Red Blood Count 4.19 M/mm3 (4.2-5.4); Red Cell Distribution Width 14.1 % (11.5-14.0); White Blood Count 10.2 K/mm3 (4.0-10.5)
[2016-09-09 06:00] LABS: Anion Gap 14.5 mmol/L (6.8-13.8); BUN/Creatinine Ratio 15.3 (9.0-21.6); Calcium * 8.4 mg/dL (7.9-10.9); Estimated Creat Clear 90.2; Potassium 4.5 mmol/L (3.4-4.6)
[2016-09-09] MEDS: DOXYCYCLINE HYCLATE 100 MG in DEXTROSE 5 % IN WATER 100 ML IV SCH ×4 (06:22→20:07)
--- NOTE | 2016-09-09 06:36 | PN ---
Subjective - Date and Time Seen Date: 09/09/16 Time: 06:28 Subjective Narrative: Less nauseated, and headache. Previous history of palpitations, never formaly evaluated. Less weak and bad all over. Slight cough. Dr. Hughes recommends bid amiodarone while here in the hospital, then a month of amiodarone 200 mg once daily, then stop and do a month of an event monitor. Also, one aspirin daily. Objective - Review of Systems Generalized/Overall Review: Reports: Malaise EENTM: Reports: No Symptoms Reported Respiratory: Reports: No Symptoms Reported Cardiac: Reports: No Symptoms Reported Abdominal: Reports: No Symptoms Reported Genitourinary Symptoms: Reports: No Symptoms Reported Musculoskeletal Complaints: Reports: No Symptoms Reported Neurological: Reports: No Symptoms Reported Skin: Reports: No Symptoms Reported Endocrine: Reports: No Symptoms Reported Misc: All systems neg except as marked - Vitals Vitals: Last Vital Signs Selected Entries 09/09/16 04:00 Temperature 37.1 C Temperature Oral Source Pulse Rate 84 Respiratory 16 Rate Blood Pressure 125/59 Blood Pressure Supine Position O2 Sat by Pulse 91 Oximetry Oxygen Delivery Room Air Method - Abnormal Lab Findings Abnormal Lab Findings: Abnormal Lab Results 09/08/16 09/08/16 09/09/16 Range/Units 06:49 06:49 05:30 RBC 3.90 L 4.19 L (4.2-5.4) M/mm3 Hgb 11.6 L 12.4 L (12.5-16.0) gm/dL Hct 34.2 L 36.0 L (37.0-47.0) % RDW 14.1 H 14.1 H (11.5-14.0) % MPV 10.5 H 10.2 H (6.0-9.5) fl Immature Gran % (Auto) 1.10 H 1.60 H (0.001-0.429) % Immature Gran # (Auto) 0.11 H 0.16 H (0.000-0.0310) K/mm3 Lymphocytes % 14.2 L 17.8 L (20-51) % Monocytes % 14.3 H 13.4 H (0.0-9) % Neutrophils # 7.1 H 6.5 H (1.3-6.0) K/mm3 Lymphocytes # 1.4 L (1.5-3.5) k/mm3 Monocytes # 1.5 H 1.4 H (0.0-1.0) k/mm3 Carbon Dioxide 23.6 L (24-32.6) mmol/L Anion Gap (6.8-13.8) mmol/L Total Protein 5.9 L (6.2-8.2) gm/dL Albumin 2.4 L (3.4-5.0) gm/dl 09/09/16 Range/Units 05:30 RBC (4.2-5.4) M/mm3 Hgb (12.5-16.0) gm/dL Hct (37.0-47.0) % RDW (11.5-14.0) % MPV (6.0-9.5) fl Immature Gran % (Auto) (0.001-0.429) % Immature Gran # (Auto) (0.000-0.0310) K/mm3 Lymphocytes % (20-51) % Monocytes % (0.0-9) % Neutrophils # (1.3-6.0) K/mm3 Lymphocytes # (1.5-3.5) k/mm3 Monocytes # (0.0-1.0) k/mm3 Carbon Dioxide 21.0 L (24-32.6) mmol/L Anion Gap 14.5 H (6.8-13.8) mmol/L Total Protein (6.2-8.2) gm/dL Albumin (3.4-5.0) gm/dl - Exam Constitutional: Present: Alert, Oriented x3, Cooperative, Well developed, Well nourished, No distress ENT Exam: Present: normal ENT inspection, hearing grossly normal Neck: Present: normal inspection Respiratory: Present: normal breath sounds, no respiratory distress Cardiovascular/Chest: Present: regular rate, rhythm, no chest tenderness Abdomen: Present: Normal bowel sounds, soft, nontender, nondistended, no rebound tenderness, no hepatospenomegaly, no masses Extremity: Present: normal inspection, no pedal edema Skin Exam: Present: normal color, warm/dry, no cyanosis Neurologic: Present: alert, oriented x 3 Appearance: Present: appropriate appearance, appropriate insight, neat, no memory impairment Eye contact: Present: cooperative, good eye contact, normal speech Thoughts: Present: normal thought pattern Assessment/Plan Plan Narrative: Selected Entries 09/08/16 09/08/16 09/08/16 13:00 16:13 20:00 Temperature 37.3 C 38.8 C H 37 C 09/09/16 04:00 Temperature 37.1 C Wean O2. Continue IV antibiotics. Adjust potassium and follow labs. Febrile yesterday. Home within the next few days. - Problems/Diagnosis (1) Diarrhea Problem: Acute Qualifiers: Diarrhea type: presumed infectious Qualified Code(s): A09 - Infectious gastroenteritis and colitis, unspecified (2) UTI (urinary tract infection) Problem: Acute Qualifiers: Urinary tract infection type: acute pyelonephritis Qualified Code(s): N10 - Acute pyelonephritis (3) Dehydration Problem: Acute (4) Fever Problem: Acute Qualifiers: Fever type: other Qualified Code(s): R50.81 - Fever presenting with conditions classified elsewhere (5) Pneumonia Problem: Acute Qualifiers: Pneumonia type: due to unspecified organism Laterality: right Lung location: middle lobe of lung Qualified Code(s): J18.1 - Lobar pneumonia, unspecified organism (6) Vomiting Problem: Acute Qualifiers: Vomiting type: unspecified Vomiting Intractability: non-intractable Nausea presence: with nausea Qualified Code(s): R11.2 - Nausea with vomiting, unspecified (7) UTI due to Klebsiella species Problem: Acute (8) Klebsiella sepsis Problem: Acute (9) Klebsiella pneumonia Problem: Acute (10) Atrial fibrillation with RVR Problem: Acute (11) Pulmonary edema Problem: Acute (12) Fluid overload Problem: Acute (13) Migraine Problem: Acute Qualifiers: Migraine type: without aura Status migrainosus presence: without status migrainosus Intractability: not intractable Qualified Code(s): G43.009 - Migraine without aura, not intractable, without status migrainosus
[2016-09-09] MEDS ORDERED: AZITHROMYCIN 500 MG in DEXTROSE 5 % IN WATER 250 ML IV SCH ×2 (07:00)
[2016-09-09] MEDS: ENOXAPARIN SODIUM 40 MG/0.4 ML SYRG SC SCH (07:23)
[2016-09-09] MEDS: POTASSIUM CHLORIDE 20 MEQ TABLET.SA PO SCH ×2 (08:41→20:12)
[2016-09-09] MEDS: AMIODARONE HCL 200 MG TABLET PO SCH ×2 (08:41→20:11)
[2016-09-09] MEDS: ASPIRIN 81 MG TABLET.DR PO SCH (08:42)
[2016-09-10] MEDS: LEVALBUTEROL HCL 0.63 MG/3 ML AMPUL IH SCH ×2 (01:55→06:01)
[2016-09-10 06:11] LABS: Anion Gap 15.9 mmol/L (6.8-13.8); Carbon Dioxide 21.9 mmol/L (24-32.6); Potassium 3.8 mmol/L (3.4-4.6)
[2016-09-10 06:26] VITALS: BP 124/72
[2016-09-10] MEDS: DOXYCYCLINE HYCLATE 100 MG in DEXTROSE 5 % IN WATER 100 ML IV SCH ×2 (06:55)
--- NOTE | 2016-09-10 06:55 | DS ---
(1) Diarrhea Problem: Acute Qualifiers: Diarrhea type: presumed infectious Qualified Code(s): A09 - Infectious gastroenteritis and colitis, unspecified (2) UTI (urinary tract infection) Problem: Acute Qualifiers: Urinary tract infection type: acute pyelonephritis Qualified Code(s): N10 - Acute pyelonephritis (3) Dehydration Problem: Acute (4) Fever Problem: Acute Qualifiers: Fever type: other Qualified Code(s): R50.81 - Fever presenting with conditions classified elsewhere (5) Pneumonia Problem: Acute Qualifiers: Pneumonia type: due to unspecified organism Laterality: right Lung location: middle lobe of lung Qualified Code(s): J18.1 - Lobar pneumonia, unspecified organism (6) Vomiting Problem: Acute Qualifiers: Vomiting type: unspecified Vomiting Intractability: non-intractable Nausea presence: with nausea Qualified Code(s): R11.2 - Nausea with vomiting, unspecified (7) UTI due to Klebsiella species Problem: Acute (8) Klebsiella sepsis Problem: Acute (9) Klebsiella pneumonia Problem: Acute (10) Atrial fibrillation with RVR Problem: Acute (11) Pulmonary edema Problem: Acute (12) Fluid overload Problem: Acute (13) Migraine Problem: Acute Qualifiers: Migraine type: without aura Status migrainosus presence: without status migrainosus Intractability: not intractable Qualified Code(s): G43.009 - Migraine without aura, not intractable, without status migrainosus Description of Stay: Following admission, the nature of her infections became clear. She grew Klebsiella from her urine and from one of two blood cultures. She had hematogenous spread of her Klebsiella, causing right lower lobe Klebsiella pneumonia. The stress of her infection, causing sepsis, plus some fluid overload, led to two episodes of a fib with rvr. This was treated with IV lasix , oral amiodarone, and IV diltiazem. She was seen by Dr. Adonay Hughes, cardiology, who agreed with the assessment, and plan. Her stay was complicated by a flare of her migraine headaches, which have now resolved. She feels almost normal today and is ready to go home. We will provide one month of amiodarone, 200 mg daily, then we will stop that medicine. Thereafter, because of her ongoing history of palpitations, we will do a 30 day event monitor. Procedures Performed: none Discharge Disposition: Home self care Disposition: Home self-care Condition: Good Discharge Activity: Activity as tolerated Discharge Diet: General/regular food Consultation Done:: Dr. Hughes, cardiology Problem Oriented Discharge Instructions to Patient/Family: Pyelonephritis, Adult, Sepsis, Adult, Community-Acquired Pneumonia, Adult, [id number], Atrial Fibrillation, [id number], Migraine Headache, [id number] Additional Patient Instructions (free text): CBC BMP blood test [address] Wilhelm, 1 week Prescriptions (Any new or edited meds): Amiodarone HCl [Cordarone] 200 mg PO DAILY #30 tablet Aspirin [Aspirin Enteric Coated] 81 mg PO DAILY #30 tablet. Cefuroxime Axetil [Ceftin] 500 mg PO BID #30 tab Complete Home Medications List: Complete Home Medication List: Acetaminophen [Tylenol] 650 mg PO QID PRN #0 tablet 09/10/16 Amiodarone HCl [Cordarone] 200 mg PO DAILY #30 tablet 09/10/16 Aspirin [Aspirin Enteric Coated] 81 mg PO DAILY #30 tablet. 09/10/16 Cefuroxime Axetil [Ceftin] 500 mg PO BID #30 tab 09/10/16
[2016-09-10] MEDS: ENOXAPARIN SODIUM 40 MG/0.4 ML SYRG SC SCH (07:00)
[2016-09-10] MEDS: POTASSIUM CHLORIDE 20 MEQ TABLET.SA PO SCH (09:03)
[2016-09-10] MEDS: ASPIRIN 81 MG TABLET.DR PO SCH (09:04)
[2016-09-10] MEDS: AMIODARONE HCL 200 MG TABLET PO SCH (09:04)
--- NOTE | 2016-09-21 17:09 | PN ---
Subjective - Date and Time Seen Date: 09/06/16 Time: 07:30 Subjective Narrative: Slept fairly well last night, but has a headache. Has a history of chronic migraine. Nausea. Poor appetite. Loose black stool yesterday. Objective - Review of Systems Generalized/Overall Review: Reports: Weakness, Malaise, Fatigue EENTM: Reports: No Symptoms Reported Respiratory: Reports: No Symptoms Reported Cardiac: Reports: No Symptoms Reported Abdominal: Reports: Nausea, Other Genitourinary Symptoms: Reports: No Symptoms Reported Musculoskeletal Complaints: Reports: No Symptoms Reported Neurological: Reports: Headache Skin: Reports: No Symptoms Reported Endocrine: Reports: No Symptoms Reported Misc: All systems neg except as marked - Vitals Vitals: Last Vital Signs Selected Entries 09/05/16 09/06/16 09/06/16 21:00 02:00 07:13 Temperature 36.7 C 37.7 C H 37.2 C Temperature Oral Oral Oral Source Pulse Rate 91 Respiratory 20 Rate Blood Pressure 106/58 Blood Pressure Supine Position O2 Sat by Pulse 91 Oximetry Oxygen Delivery Room Air Method - Exam Constitutional: Present: Alert, Oriented x3, Cooperative, Well developed, Well nourished, No distress ENT Exam: Present: normal ENT inspection, hearing grossly normal Neck: Present: supple Respiratory: Present: lungs clear, no respiratory distress Cardiovascular/Chest: Present: regular rate, rhythm, no murmur Abdomen: Present: Normal bowel sounds, soft, nontender, nondistended, no rebound tenderness, no hepatospenomegaly, no masses Extremity: Present: non-tender, pedal edema Skin Exam: Present: normal color, warm/dry, no cyanosis Neurologic: Present: alert, normal mood/affect, oriented x 3 Appearance: Present: appropriate appearance, appropriate insight, neat, no memory impairment Eye contact: Present: cooperative, good eye contact, normal speech Thoughts: Present: normal thought pattern Assessment/Plan Plan Narrative: Treat migraine. Continue IV antibiotics. Follow labs. Await cultures. - Problems/Diagnosis (1) Diarrhea Problem: Acute Qualifiers: Diarrhea type: presumed infectious Qualified Code(s): A09 - Infectious gastroenteritis and colitis, unspecified (2) UTI (urinary tract infection) Problem: Acute Qualifiers: Urinary tract infection type: acute pyelonephritis Qualified Code(s): N10 - Acute pyelonephritis (3) Dehydration Problem: Acute (4) Fever Problem: Acute Qualifiers: Fever type: other Qualified Code(s): R50.81 - Fever presenting with conditions classified elsewhere (5) Pneumonia Problem: Acute Qualifiers: Pneumonia type: due to unspecified organism Laterality: right Lung location: middle lobe of lung Qualified Code(s): J18.1 - Lobar pneumonia, unspecified organism (6) Vomiting Problem: Acute Qualifiers: Vomiting type: unspecified Vomiting Intractability: non-intractable Nausea presence: with nausea Qualified Code(s): R11.2 - Nausea with vomiting, unspecified (7) Migraine Problem: Acute Qualifiers: Migraine type: without aura Status migrainosus presence: without status migrainosus Intractability: not intractable Qualified Code(s): G43.009 - Migraine without aura, not intractable, without status migrainosus (8) Sepsis Problem: Acute
== END 2016-09-10 09:58 | disposition home or self-care (01) | DRG 871 ==
LOC: ER 14:54 → MS 19:19 → OBSVTOIN 09-06 07:53 → SCU 09-07 04:25 → MS 09-08 20:30
PROVIDERS: ADMIT Nurse Practitioner; ATTEND Allergy & Immunology
PROC: B246ZZZ Ultrasonography of Right and Left Heart (ICD-10-PCS; principal; 2016-09-07)
DX: A41.89 Other specified sepsis (principal); J15.0 Pneumonia due to Klebsiella pneumoniae; N39.0 Urinary tract infection, site not specified; A09 Infectious gastroenteritis and colitis, unspecified; I48.0 Paroxysmal atrial fibrillation; E87.70 Fluid overload, unspecified; E86.0 Dehydration; B96.1 Klebsiella pneumoniae [K. pneumoniae] as the cause of diseases classified elsewhere; Z87.01 Personal history of pneumonia (recurrent)
CPT/HCPCS: 36415; 71010; 71020; 80048; 80051; 80053; 81001; 83605; 83690; 83880; 84443; 84484; 85007; 85025; 87040; 87070; 87077; 87081; 87086; 87186; 87400; 87430; 87449; 93005; 93306; 94640; 96361; 96365; 96375; 99284; G0378